=== PATIENT | female | born 1980 | race Caucasian/White ===

== ENCOUNTER 2024-12-29 11:16 | Inpatient (IN) | payer BC, SELFPAY ==
[2024-12-29] VITALS (32 sets, daily range): BP systolic 92–121; BP diastolic 60–76; PULSE 51–61; RESP 10–19; TEMP 36.3–36.7; O2SAT 97–100; BMI 32.1
--- OUTSIDE RECORDS SUMMARY | 2024-12-29 11:29 | XMS_ITS | Clinical Summary ---
Author Organization [facility] Address [facility] [place] [address] Care Team Providers Care Cheese Pancake Roller Name Role Phone Natty Mayes MD Primary Care Provider [phone] Reji Matos MD Unavailable + [phone] Natty Cope RN Unavailable [phone] Unavailable Unavailab le Allergies Active Allergy Reactions Criticality Noted Date Comments Nsaids (Non-Steroidal Anti-Inflammatory Drug) Other - Describe In Comment Field 05/12/2018 This patient has a history of a Rosita-en-Y gastric bypass. AVOID NSAIDs and aspirin due to risk of gastric and/or G-J anastomotic ulcers. If Ondina must be on short course of NSAIDs or aspirin, use enteric coated if possible and use PPI // Natty Cope RN, Bariatric Nurse Clinician, [facility] Weight Management 05/12/2018. Medications norethindrone, Contraceptive, (MICRONOR, 28,) 0.35 mg tablet Take 0.35 mg by mouth once daily. 08/10/2021 Active Active Problems Patient Care Coordination No te Formatting of this note migh t be different from the original. Weight Management - Adult Surgical Program -- [facility] Initial Consult 09/17/2017 with Reji Matos MD Intake:297 (5'6; 47.99) Operation: Laparoscopic Rosita-en Y gastric bypass 04/07/2018 Problem Noted Date Diagnosed Date Multigravida of advanced maternal age 0812/07/2020 Overview (07/03/2021): Materniti-21 at 10 weeks normal. Level 2 us 02/27 normal, aua=19+6. Had J and J COVID vaccine. Hesitant on booster due to getting vaccine just prior to her previous stillbirth. Heterozygous factor V Leiden mutation 10/20/2020 Overview (07/03/2021): After consulting with her gastric bypass team, we have elected to initiate baby asa. Status post gastric bypass for obesity Overview (07/03/2021): Information given on different supplements to take during . Additional labs are drawn. All labs normal, patient will continue with her current supplements. Patient has tolerated 1 hour glucose in the past and wants to do that for gestational diabetes screen. Supervision of wit h other poor reproductive or obstetric history, unspecified trimester 10/20/2020 Overview (07/03/2021): Delivered at 41 weeks. Would induce between 37-39 this . Since growth was normal and improved 06/07/21, will begin testing at 36 weeks. Growth us q 4 weeks. Formal ultrasound today growth at 12%ile overall. Normal fluid. Patient with significant anxiety and perceiving decreased activity. Reassuring testing today, but growth has slowed. Discussed with MFM at [facility]; passed 37 weeks with significant maternal anxiety and current clinical setting, delivery is reasonable. demise, greater than 22 weeks, antepartum 08/15/2020 Bariatric surgery status com plicating , second trimester 03/14/2020 Primigravida of advanced maternal age in second trimester 03/14/2020 Laparoscopic rosita-en-y gstri c bypass 04/07/2018 Dr. Matos 04/07/2018 Overview (04/07/2018): Dr. Matos Family planning 05/07/2012 Resolved Problems Problem Noted Date Diagnosed Date Resolved Date Encounter for supervision of normal first in first trimester 01/06/2020 08/14/2020 BMI 40.0-44.9, adult 04/16/2018 021 Other acne 05/07/2012 08/14/2020 Immunizations Immunization Administration Dates Next Due COVID-19 vaccine (Fix8-J&J) PF, MDV 1 COVID-19 vaccine (Palringo-Bio NTech 30mcg/0.3mL) 12YO+ JOEY-SUCROSE PF, MDV 09/06/2021 DTaP 11/20/2005 Hepatitis B (Adult) 12/12/2004, 5,11/14/2004,11/14 Hepatitis B, Unspecified 06/24/2001,01/17/2001,0 11/28/2000 Influenza Virus, Unspecified 05/07/2012 Influenza, IIV3 (Age >=3 years) 05/07/2012 Influenza, IIV4 01/19/2020, 9,03/03/2018,01/09 Influenza, IIV4 (=>6mos) MDV 01/16/2020 Meningococcal Vaccine (Menomune) 11/28/2000 Tdap 04/26/2021, 1,08/08/2017,11/20 Family History Medical History Relation Name Comments No Known Problems Brother No Known Problems Daughter Hyperlipidemia Father Hypertension Father Obesity Father Heart Disease Maternal Grandfather Lymphoma Maternal Grandmother lymphom a Good Health Mother smoker Heart Disease Paternal Grandfather Obesity Paternal Grandfather Obesity Paternal Grandmother Depression Sister 1 Obesity Sister 1 Depression Sister 2 Obesity Sister 2 Other Son stillborn Anesthesia Problem No Family History Clotting disorder No Family History Relation Name Status Comments Brother Alive Daughter Alive Father Alive Maternal Grandfather (Age 70) Maternal Grandmother (Age 65) Mother Alive Paternal Grandfather Paternal Grandmother (Age 90) Sister 1 Alive x2 Sister 2 Alive Son Social History Tobacco Use Types Packs/Day Years Used Date Smoking Tobacco: Never Smokeless Tobacco: Never Tobacco Cessation:Counseling Given: Yes Alcohol Use Standard Drinks/Week Comments Not Currently 0 (1 standard drink = 0.6 oz pur e alcohol) none currently Humiliation, Afraid, Rape, and Kick questionnair e Answer Date Recorded Within the last year, have y ou been afraid of your partner or ex-partner? No 01/06/2020 Within the last year, have y ou been humiliated or emotionally abused in other ways by your partner or ex-partner? No Within the last year, have y ou been kicked, hit, slapped, or otherwise physically hurt by your partner or ex-partner? No 01/06/2020 Within the last year, have y ou been raped or forced to have any kind of sexual activity by your partner or ex-partner? No 01/06/2020 PHQ-2 Answer Date Recorded PHQ-2 TOTAL SCORE 0 09/06/2021 [facility] Occupational Stress Questionnaire Answer Date Recorded Do you feel stress - tense, restless, nervous, or anxious, or unable to sleep at night because your mind is troubled all the time - these days? Not at all 01/06/2020 Exercise Vital Sign Answer Date Recorde d On average, how many days pe r week do you engage in moderate to strenuous exercise (like a brisk walk)? 4 days 01/06/2020 On average, how many minutes do you engage in exercise at this level? 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 Gender Identity Not on file Sexual Orientation Not on file Occupation Industry Job Start Date Job End Date [employer] Not on file Not on file Not on f ile Obstetrics History Para Term AB IAB SAB Ectopic Multiple Livin g Live Births 2 2 2 0 0 0 0 0 0 1 1 Date Outcome GA Total Labor Labor/2nd/3rd Weight Sex Type Anes PTL Adina A1 A5 Name Clin 2020 Term 41w 0d 7h 10m 6h 30m/0h 35m/0h 05m 3.57 kg (7 lb 14 oz) M VAGINA L RITIKA Epidur al N Demis e 0 0 VENTURA ER,BB ONDINA kelly, Natty Gonzales MD Complications:Shoulder Dysto demla, demise affecting delivery (HC) Delivery Location:Hospital ( [facility]) 2021 Term 37w 3d 0h 12m 0h 12m 2.66 kg (5 lb 14 oz) F C-Sect ion Genera l,Epid ural Livin g 7 9 VENTURA VALIENTE,BG ONDINA Armijo , Easton perdue MD Complications:Cord prolapse, Prolapse of umbilical cord, single or unspecified fetus (HC) Delivery Location:Hospital ( [facility]) Last Filed Vital Signs Vital Sign Reading Time Taken Comments Blood Pressure 115/68 09/21/2021 10:15 AM CDT Pulse 58 09/21/2021 10:15 AM CDT Temperature 36.3 C (97.4 F) 09/21/2021 8:55 AM CDT Respiratory Rate 16 09/21/2021 10:15 AM CDT Oxygen Saturation 98% 09/21/2021 10:15 AM CDT Inhaled Oxygen Concentration - - Weight 91.4 kg (201 lb 8 oz) 09/21/2021 6:52 AM CDT Height 165.1 cm (5' 5) 09/21/2021 6:52 AM CDT Body Mass Index 33.53 09/21/2021 6:52 AM CDT Plan of Treatment Health Maintenance Due Date Last Done Comments HPV series for age 9-45 (1 - 3-dose SCDM series) 2009 BMI (ht and wt on same day) for age 18+ 09/06/2022 09/06/2021, 08/22/2020, 01/06/2020, Additional history exists Depression screening for age 12+ 09/06/2022 09/06/2021, 12/18/2019, 04/16/2018, Additional history exists Pap test for age 21-65 07/14/2023 , 11/16/2016, 10/08/2013 COVID-19 vaccine series ( season) 2024 09/06/2021, 07/20/2020 Influenza Vaccine (#1) 2024 , 01/16/2020, 01/20/2019, Additional history exists Tetanus booster 04/26/2031 04/26/2021, 04/22, 08/08/2017, Additional history exists RSV vaccine for adults or (1 - 1-dose 75+ series) 2057 Hepatitis B series for 19+ Completed 12/12, 12/12/2004, 11/14/2004, Additional history exists HIV for age 15-65 Completed 01/06/2020 Hepatitis C screening for age 18-79 Completed 01/06/2020 Pneumococcal series for age 6-49 Aged Out No longer eligible based on patient's age to complete this topic Procedures Procedure Name Priority Date/Time Associated Diagnosis Comments 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 ThinPrep Vial Screening, Cervical 07/20/2020 10:13 AM CDT [facility] ENTRAL LABORATORY INTERPRETATION/ RESULT NEGATIVE FOR INTRAEPITHELIAL LESION OR MALIGNANCY (NIL) (none) 07/20/2020 10:13 AM CDT [facility]AL LAB[facility] at 1013 CDT ORGANISM(S) Shift in kota suggestive of bacterial vaginosis 07/20/2020 10:13 AM CDT [facility] ENTRAL LABORATORY SPECIMEN ADEQUACY Satisfactory for evaluation Endocervical component present 07/20/2020 10:13 AM CDT [facility] EN[facility]AL LAB[facility] HPV REQUEST HPV if ASCUS 07/20/2020 10:13 AM CDT [facility] EN[facility]AL [facility] Date of LMP unk 07/20/2020 10:13 AM CDT [facility] Last Pap Date 11/16/16 07/20/2020 10:13 AM CDT [facility] Last Pap Result NIL 10:13 AM CDT [facility] EN[facility]AL LAB[facility] Abnormal Pap or [place] Bx in last 5 years No 07/20/2020 10:13 AM CDT [facility] Menstrual Status Regular Periods 07/20/2020 10:13 AM CDT [facility] [place] Bx Done Today No 07/20/2020 10:13 AM T [facility] ENTRAL LABORATORY Additional Information None given 07/20/2020 10:13 AM CDT [facility] ENTRAL LABORATORY Comment: Cytology is screened at [facility] - [address] [address] and [facility] - [address] [place] [address] and [facility] - [address] [place] [address] Interpreted at [facility], Central Laboratory - [address], [place] [address] Automated Review Successful 07/20/2020 10:13 AM T [facility] ENTRAL LABORATORY Comment:Specimen processed s uccessfully by automated platform worker device, ThinPrep Imaging System, [employer] Note The pap test is a screening technique, not a diagnostic procedure. It is used primarily to screen for squamous cancers and precursor lesions. Published studies have shown that it is subject to both false negative and false positive results. The pap test should not be used as the sole means to diagnose or exclude pre-malignant and malignant lesions. 07/20/2020 10:13 AM T [facility] ENTRAL LABORATORY Other (Cervical) Non-Blood / Unknown 07/13/2020 9:20 AM CDT 07/13/2020 10:06 AM CDT Natty Mayes MD PATHOLOGY/CYTOLOGY Final Res ult [facility] [address] [place] [address], [place] * ANTI HCV (01/06/2020 10:11 AM CDT) HEPATITIS C ANTIBODY Non-React soledad Non-React soledad 01/06/2020 5:24 PM CDT [facility] TRAL LABORATORY Comment:Antibodies to HCV no t detected; does not exclude the possibility of exposure to HCV. Blood BLOOD SPECIMEN / Unknown Venipuncture / Unknown 01/06/2020 10:11 AM CDT 01/06/2020 10:14 AM CDT Natty Mayes MD SEND OUTS Final Result Performing Organization Address City/[facility]/ZIP Co de Phone Number [facility] [address] [place] [address], [place] * ANTI HIV 1/2 (01/06/2020 10:11 AM CDT) HIV-1/HIV-2 ANTIBODY Non-Reacti ve Non-Reacti ve 01/06/2020 5:22 PM CDT [facility] TRAL LABORATORY Comment:HIV-1 p24 and HIV-1/ HIV-2 Ab not detected. Blood BLOOD SPECIMEN / Unknown Venipuncture / Unknown 01/06/2020 10:11 AM CDT 01/06/2020 10:14 AM CDT Natty Mayes MD SEND OUTS Final Result [facility] [address] [place] [address], [place] from Last 3 Months or Most Recently Relevant to Health Maintenance Insurance [facility] [employer] * Guarantor: ELIZA ELDRIDGE Account Type Relation to Patient Date of Phone Billing Address [facility] [address] [place] [address] Advance Directives * Full Code (Latest Code Status on File) Date Activated Date Inactivated Comments 09/21/2021 6:29 AM 09/21/2021 12:59 PM Question Answer Comments Code Status Discussion: Reviewed Preferences * Full Code Date Activated Date Inactivated Comments 07/03/2021 11:46 AM 07/03/2021 3:29 PM Question Answer Comments Code Status Discussion: Other * Full Code Date Activated Date Inactivated Comments 06/30/2021 9:17 AM 06/30/2021 10:32 PM Question Answer Comments Code Status Discussion: Other * Full Code Date Activated Date Inactivated Comments 08/14/2020 6:28 PM 08/16/2020 12:25 AM Question Answer Comments Code Status Discussion: Not Discussed * Full Code Date Activated Date Inactivated Comments 08/14/2020 6:28 PM 08/14/2020 6:28 PM Question Answer Comments Code Status Discussion: Not Discussed Care Teams Cheese Pancake Roller Relationship Specialty Start Date End Date Natty Mayes MD [address] [place] [address] PCP - General Family Practice 05/07/12 Reji Matos MD 100 [facility] [place] [address] Consulting Physician Surgery - General 09/17/17 Natty Cope, RN [address] [facility] [place] [address] Registered Nurse Registered Nurse 09/17/[address] [facility] [place] [address] Registered Dietitian Guest Service Supervisor 09/17/17
--- NOTE | 2024-12-29 12:11 | ED.GENADULT ---
HPI - General Adult General Date Seen: 12/29/24 Chief complaint: Extremity Pain/Injury, Upper Stated complaint: numbness in hands and feet Time Seen by Provider: 12/29/24 12:10 History of Present Illness HPI narrative: 44 yo F with a past medical history of factor 5 Leiden. Per medical record from [facility] she also has a history of previous gastric bypass (Venessa-en-Y, 2018), heterozygous factor 5 Leiden. She has no history of spine problems, back pain or neck pain. No previous spine operations. She has been healthy and well lately. She does take escitalopram for anxiety. That is been well controlled lately. She also takes methylphenidate for ADHD. That is also well controlled. She has no recent illnesses or injuries. No recent vomiting or diarrhea. No recent URI symptoms. Her and her 3-year-old daughter have been healthy and well lately as well. Beginning at about 230 this morning she noted symptoms. She awoke to go to the bathroom and when she woke up she noted a little bit of stiffness in both of her shoulders and the back of her neck and a little bit of tingling in her hands and fingers. She tried to stretch out her neck again massaged to make this stiffness go way. She was able to go back to sleep. When she woke up this morning with a cough she has noticed progressing symptoms now with numbness and tingling affecting her hands, although up to her elbows and some trouble with her comprehensive ophthalmologist strength in her hands. Through the morning she feels like her hands and arms have gotten more numb and a little bit weaker. She even has trouble picking her arms up above her head. The numbness in her arms is symmetric and bilateral. She also this morning she started developing a little bit tingling numbness affecting her right lower extremity mostly around the hip and proximal thigh as noted some weakness in that leg as well where it is trouble walking. She is not having any numbness or weakness in her left leg. No headache. No slurred speech. No facial droop. No trouble with her vision. No double vision. No trouble swallowing. No trouble breathing. No fever. No rash. No known fall or injury. No chest pain or abdominal pain. She does note that she is pretty active in she was playing softball about 3 weeks ago and got struck in the left calf by a softball. No persistent calf bruising or leg swelling. She is not anticoagulated. History of blood clots but she did have 1 previous miscarriage at about 22 weeks which is thought to be related to her heterozygous factor 5 Leiden. Related Data Home Medications ?Medication ?Instructions ?Recorded ?Confirmed dextroamphetamine-amphetamine 10 1 tab PO DAILY 12/29/24 12/29/24 mg tablet dextroamphetamine-amphetamine ER 1 cap PO DAILY 12/29/24 12/29/24 15 mg 24hr capsule,extend release escitalopram oxalate 10 mg tablet 10 mg PO DAILY 12/29/24 12/29/24 Allergies Allergy/AdvReac Type Severity Reaction Status Date / Time No Known Drug Allergies Allergy Verified 12/29/24 11:33 [facility] Medical History (Updated 12/29/24 @ 22:10 by Melissa Phelps MD) History of stillbirth ?Z87.59 - Personal history of other complications of , childbirth and the puerperium (ICD-10) ADHD ?F90.9 - Attention-deficit hyperactivity disorder, unspecified type (ICD-10) Heterozygous factor V Leiden mutation ?D68.51 - Activated protein C resistance (ICD-10) Microcytic anemia ?D50.9 - Iron deficiency anemia, unspecified (ICD-10) Surgical History (Updated 12/29/24 @ 21:06 by Melissa Phelps MD) H/O bilateral salpingectomy ?Z90.79 - Acquired absence of other genital organ(s) (ICD-10) History of Venessa-en-Y gastric bypass ?Z98.84 - Bariatric surgery status (ICD-10) S/P tonsillectomy ?Z90.89 - Acquired absence of other organs (ICD-10) Hx of cholecystectomy ?Z90.49 - Acquired absence of other specified parts of digestive tract (ICD-10) Delivery by section S/P right knee arthroscopy ?Z98.890 - Other specified postprocedural states (ICD-10) Social History (Updated 12/29/24 @ 22:04 by Melissa Phelps MD) Narrative: Lives with Christopher and 3 yo daughter in [place]. Works at the [employer]. Nonsmoker, rare ETOH. Full Code. Exam Narrative: Exam Narrative: Primary Survey: A- patent. Speaking clearly. Phonation normal. No stridor. B- breathing easily. Lung sounds clear and equal. Oxygen saturation normal on room air C- no active bleeding. Blood pressure stable. Symmetric pulses and cap refill in 4 extremities. D- alert and oriented x3. GCS 15. Constitutional: Appears well-developed and well-nourished. Alert. Conversant. Non toxic. HENT: Head: Atraumatic. Nose: Nose normal. Mouth/Throat: Oral mucosa is clear and moist. no trismus. Pharynx normal. Tonsils symmetric. No tonsillar enlargement, erythema, or exudate. Eyes: Conjunctivae normal. EOM normal. Pupils equal, round, and reactive to light. No scleral icterus. Neck: Normal range of motion. Neck supple. No tracheal deviation present. Cardiovascular: Normal rate, regular rhythm. No gallop. No friction rub. No murmur heard. Symmetric radial and PT artery pulses . She says her hands and feet feel cold but she does have brisk cap refill. No cyanosis or pallor. Pulmonary/Chest: Effort normal. No stridor. No respiratory distress. No wheezes. No rales. No rhonchi . No tenderness. Abdominal: Soft. No distension. No mass. No tenderness. No rebound. No guarding. Musculoskeletal: No C, T, L-spine step-off or point tenderness. No bruising. RUE: Normal range of motion. No tenderness. No deformity LUE: Normal range of motion. No tenderness. No deformity RLE: Normal range of motion. No edema. No tenderness. No deformity LLE: Normal range of motion. No edema. No tenderness. No deformity Mental status normal. Attention normal. Alert and oriented x3. GCS 15. Memory normal. Speech fluent. Cognition normal. Cranial Nerves intact II-XII except I did not formally test gag or visual acuity. EOMI. Palate elevates symmetrically and tongue protrudes in the midline. Strength: Strength is 5/5 bilaterally in the trapezius 4+/5 bilaterally in the deltoid. She is able to lift her arms up against gravity but not all the way up above her head. 5/5 strength in her biceps but 4+ in her triceps bilaterally. She has very little comprehensive ophthalmologist strength and is barely able to squeeze my fingers bilaterally. She has trouble doing pronation and supination of her forearms bilaterally. Strength in her lower extremities is 5/5 bilaterally in the so S, hamstring, gastrocnemius, tibialis anterior, extensor hallucis longus, and toe flexors. However when she walks she is shows a little bit of weakness in her right leg but not a footdrop. She has subjective tingling paresthesias involving her light right lower extremity including the proximal thigh medial thigh, and a little bit on the foot. DTs are symmetric and 2+/4 bilaterally in the biceps, brachioradialis, patella, and Achilles reflexes. Really generally pretty brisk reflexes. Easy to elicit her Achilles tendon reflexes. I am not able to get triceps reflexes on either side but I think that is partly because the patient is just not able to completely relax her arm during triceps reflex testing. Gait is slow and she does have some trouble using her right leg to walk. She seems to tilt her pelvis toward the right leg when she steps down on it and does have a limp but does not fall. She is able to hold each leg against gravity for 5 seconds. She is able to lift each arm against gravity and hold him up for 5 seconds but I noticed that she is not able to fully extend her elbows and is not able to supinate her hands. She has bilateral comprehensive ophthalmologist weakness, bilateral weakness with her wrist flexors and extensors. Skin: Skin is warm and dry. No rash noted. No pallor. Normal capillary refill. Psychiatric: Normal mood. Normal affect allowing for some alarm because of her neurologic symptoms. Does not seem overly anxious or panicky. attentively at her bedside.. Const: Vital Signs, click to edit/add: Vital Signs - 24 hr 12/29/24 11:33 12/29/24 13:35 12/29/24 13:45 Temperature 97.3 F L Pulse Rate Pulse Rate [Pulse Oximeter] 60 Respiratory Rate 16 14 10 L Blood Pressure Blood Pressure [Le ft Upper Arm] 119/76 Pulse Oximetry 99 Oxygen Delivery Me thod Room Air 12/29/24 14:02 12/29/24 14:15 12/29/24 14:30 Temperature Pulse Rate Pulse Rate [Pulse Oximeter] Respiratory Rate 15 11 L 16 Blood Pressure 116/72 Blood Pressure [Le ft Upper Arm] Pulse Oximetry Oxygen Delivery Ks thod 12/29/24 14:31 12/29/24 14:45 12/29/24 15:00 Temperature Pulse Rate Pulse Rate [Pulse Oximeter] Respiratory Rate 14 14 14 Blood Pressure 112/66 Blood Pressure [Le ft Upper Arm] Pulse Oximetry Oxygen Delivery Me thod 12/29/24 15:02 12/29/24 15:30 12/29/24 15:31 Temperature Pulse Rate Pulse Rate [Pulse Oximeter] Respiratory Rate 11 L 11 L 16 Blood Pressure 92/69 114/73 Blood Pressure [Le ft Upper Arm] Pulse Oximetry Oxygen Delivery Ks thod 12/29/24 15:45 12/29/24 16:00 12/29/24 16:02 Temperature Pulse Rate Pulse Rate [Pulse Oximeter] Respiratory Rate 19 18 13 Blood Pressure 109/65 Blood Pressure [Le ft Upper Arm] Pulse Oximetry Oxygen Delivery Me thod 12/29/24 16:06 12/29/24 16:15 12/29/24 18:20 Temperature Pulse Rate 61 Pulse Rate [Pulse Oximeter] 55 L Respiratory Rate 18 17 Blood Pressure Blood Pressure [Le ft Upper Arm] 109/65 Pulse Oximetry 97 98 Oxygen Delivery Ks thod 12/29/24 18:31 12/29/24 18:32 12/29/24 18:45 Temperature Pulse Rate 55 L 55 L 56 L Pulse Rate [Pulse Oximeter] Respiratory Rate Blood Pressure 109/61 Blood Pressure [Le ft Upper Arm] Pulse Oximetry 100 99 99 Oxygen Delivery Me thod 12/29/24 18:53 12/29/24 18:56 12/29/24 19:03 Temperature Pulse Rate 55 L 58 L Pulse Rate [Pulse Oximeter] 55 L Respiratory Rate Blood Pressure 110/65 110/76 Blood Pressure [Le ft Upper Arm] 110/65 Pulse Oximetry 99 99 99 [facility] Air 12/29/24 19:04 12/29/24 19:15 12/29/24 19:31 Temperature Pulse Rate 55 L 51 L Pulse Rate [Pulse Oximeter] Respiratory Rate Blood Pressure 115/70 Blood Pressure [Le ft Upper Arm] Pulse Oximetry 99 98 Oxygen Delivery Ks thod 12/29/24 20:01 12/29/24 20:31 Temperature Pulse Rate Pulse Rate [Pulse Oximeter] Respiratory Rate Blood Pressure 113/73 121/69 Blood Pressure [Le ft Upper Arm] Pulse Oximetry Oxygen Delivery Me thod Course Course ED Course: Patient seen and examined in ER bed 6. Initial differential includes stroke (but I think that is unlikely given the bilateral nature of her upper extremity symptoms), cervical spine her disc herniation, other spine pathologies such as syringomyelia, demyelinating lesions, less likely would be epidural hematoma or abscess in the absence of any symptoms for those. She is not anticoagulated. Differential would also include Guillain-Littleton, myasthenia. Although anxiety can often cause bilateral hand numbness, typically does not cause this degree of weakness and my overall impression, this patient is that she has not seemingly anxious. We felt the neuro imaging was indicated. I did order brain and C-spine MRIs with and without contrast initially. I contacted our radiology department to see how quickly began get these done. While this was occurring we also placed a consult to Neurology from [facility]. Discussed with the stroke neurologist, Dr. Escamilla. She strongly feels this is not going to be a stroke causing her symptoms but does recommend MR imaging also to include her T-spine with and without contrast. I added these images on to the orders. Dr. Boyle also page out a different neurologist to talk about this patient's weakness. Reevaluation(s) Reevaluation #1: Discussed case with Stroke Neurology, this time Dr. Donahue. She is suspicious that this probably MS, as GA with the demyelinating lesions in the lower cervical cord. She recommends admission for high-dose IV corticosteroids (Solu-Medrol 1 g IV q.day. She also recommends admission with lab workup for connective tissue disease, lumbar puncture for further testing to confirm her diagnosis MS. Discussed with the patient and her . They are very surprised. They verbalized their understanding for our plan of care for admission, treatment, and further workup. Discussed with our hospitalist, Dr. Phelps. Vital Signs Vital signs: Initial Vital Signs Temperature 97.3 F L 12/29/24 11:33 Temperature Source Temporal Artery Scan 12/29/24 11:33 Pulse Rate 60 12/29/24 11:33 Respiratory Rate 16 12/29/24 11:33 Blood Pressure 119/76 12/29/24 11:33 Blood Pressure Mean 90 12/29/24 11:33 Blood Pressure Position Sitting 12/29/24 11:33 Pulse Oximetry 99 12/29/24 11:33 Oxygen Delivery Method Room Air 12/29/24 11:33 Vital Signs Temperature 97.3 F L 12/29/24 11:33 Pulse Rate 60 12/29/24 11:33 Respiratory Rate 16 12/29/24 11:33 Blood Pressure 119/76 12/29/24 11:33 Pulse Oximetry 99 12/29/24 11:33 Oxygen Delivery Method Room Air 12/29/24 11:33 Temperature 97.3 F L 12/29/24 11:33 Pulse Rate 51 L 12/29/24 19:15 Respiratory Rate 17 12/29/24 16:15 Blood Pressure 121/69 12/29/24 20:31 Pulse Oximetry 98 12/29/24 19:15 Oxygen Delivery Method Room Air 12/29/24 18:56 Medications Administered Medications: Discontinued Medications Generic Name Dose Route Start Last Admin Trade Name Freq PRN Reason Stop Dose Admin Methylprednisolone Sodium 266 mls @ 266 mls/hr 12/29/24 20:30 12/29/24 22:07 Succinate 1,000 mg/ Sodium IVPB 12/29/24 21:29 Infused Chloride ONCE ONE Infusion Medical Decision Making [facility] Narrative Medical decision making narrative: 44-year-old female presenting to the ER today with the acute onset of neurologic symptoms that began overnight last night and worsened this morning. She has bilateral and symmetric upper extremity weakness of comprehensive ophthalmologist send forearms with tingling paresthesias all the way up to her shoulders. Also right lower extremity tingling paresthesias and weakness mostly of the proximal muscles in the right. No trauma. No fall. Differential is broad. Consider Guillain-Littleton but no clear recent viral syndrome or diarrhea. She has normal reflexes. She is not hyperreflexic. Consider also possible demyelinating syndrome, cervical spine disc herniation, syringomyelia, central cord syndrome, myasthenia, among others. Laboratory workup does not show any definite cause for her focal neurologic deficits. I do note that she is anemic with a hemoglobin of 9.5. We do not have any recent baselines in the [facility] system but she did have a baseline a cup the the years ago that showed mild anemia with hemoglobin of 8.9 on 07/01/2021 and then 11.9 on 09/06/2021. Coags and INR are normal. She is not . White count Normal. In CRP level is low. Urinalysis is normal. COVID/influenza/RSV PCR is negative. In consultation with Neurology from [facility] we have ordered MRIs of her brain, C-spine, T-spine, with and without contrast. MRIs were delayed by several hours today because the MRI scanner was already occupied. Images show normal brain and T-spine but they do show areas of demyelination in the cervical cord suspicious for multiple sclerosis. No other mass lesions, herniating disc, or external compression of the cord. Lab Data Labs: Lab Results 12/29/24 12/29/24 Range/Units 12:30 12:42 WBC 6.98 (4.50-11.00) K/uL RBC 4.47 (4.00-5.20) m/uL Hgb 9.5 L (12.0-16.0) gm/dL Hct 32.2 L (33.0-51.0) % MCV 72 L (80-100) fL MCH 21 L (26-34) pg MCHC 30 L (32-36) gm/dL RDW Coeff of Sandra 17.0 H (11.5-15.5) % Plt Count 336 (140-440) K/uL Neut % (Auto) 67.3 (42.0-72.0) % Lymph % (Auto) 23.5 (20-44) % Weston % (Auto) 8.9 (0.0-11.0) % Eos % (Auto) 0.1 (0.0-7.0) % Baso % (Auto) 0.1 (0.0-3.0) % Neut # (Auto) 4.69 (1.7-7.0) K/uL Lymph # (Auto) 1.64 (0.90-2.90) K/uL Weston # (Auto) 0.60 (0.00-0.90) K/UL Eos # (Auto) 0.01 (0.00-0.50) K/uL Baso # (Auto) 0.01 (0.00-0.30) K/uL Abs Immat Gran (auto) 0.01 (0.00-0.30) K/uL Imm/Tot Granulo (auto) 0.1 % Diff Slide Review Acceptable Review (Acceptable) INR 0.96 (0.91-1.10) Sodium 139 (135-149) mmol/L Potassium 4.1 (3.6-5.1) mmol/L Chloride 106 (96-114) mmol/L Carbon Dioxide 28 (20-32) mmol/L Anion Gap 5 L (7-15) mEq/L BUN 9 (5-24) mg/dL Creatinine 0.6 (0.5-1.5) mg/dL Estimated Creat Clear 109.91 Estimated GFR 115 ml/min Glucose 106 (60-115) mg/dL Lactate 0.9 (0.5-1.9) mmol/L Calcium 8.7 (8.4-10.6) mg/dL C-Reactive Protein < 0.5 L (0.5-1.0) mg/dL Urine Color Yellow (Yellow) Urine Appearance Slightly Cloudy A (Clear) Urine pH 6.5 (5.0-8.5) Ur Specific [place] 1.020 (1.000-1.030) Urine Protein Negative (Negative) Urine Glucose (UA) Negative (Negative) Urine Ketones Trace A (Negative) Urine Blood Negative (Negative) Urine Nitrite Negative (Negative) Urine Bilirubin Negative (Negative) Urine Urobilinogen 2.0 A (0.2-1.0) Ur Leukocyte Esterase Negative (Negative) Urine RBC 0-2 (0-2) Urine WBC 0-2 (0-5) Ur Squamous Epith Cells Moderate A (None-Few) Urine Bacteria None (None) Urine HCG, Qual Negative (Negative) SARS-CoV-2 (PCR) Negative SARS-CoV-2 (Negative) Influenza Type A (PCR) Negative PCR FLU A (Negative) Influenza Type B (PCR) Negative PCR FLU B (Negative) RSV (PCR) Negative PCR RSV (Negative) Imaging Data MRI brain with and without contrast: Attestation: I have reviewed the pertinent imaging results. Radiologist's impression: Impression: No acute intracranial abnormality. MRI thoracic spine with and without contrast: Attestation: I have reviewed the pertinent imaging results. Radiologist's impression: Impression: 1. Mild spondylosis, without spinal canal or neural foraminal narrowing. 2. No abnormal cord signal. MRI cervical spine with and without contrast: Attestation: I have reviewed the pertinent imaging results. Radiologist's impression: Impression: 1. Scattered foci of cord signal abnormality involving the mid to lower cervical cord. Findings are concerning for demyelination. 2. No abnormal enhancement to suggest active process. 3. Minimal spondylosis. ECG Data Interpretation: Sinus bradycardia Rate 54 RI interval 136 Normal QRS axis. No ST segment elevation or depression. QTC 452, QTC 428 Discharge Plan Discharge Clinical Impression: Multiple sclerosis Patient Disposition: Admitted As Inpatient
--- NOTE | 2024-12-29 12:30 | MR_ITS ---
Patient: ONDINA ENGLISH Facility:?[facility] R[facility] Patient ID:?[id number] Site Patient ID:?[id number]. Site :?1980 Study:?MRI-Head W/ and W/O Cont 20 CC DOATERM-12/29/2024 6:30:52 PM Ordering Physician:Christiano Stephens Final Report: Indication: Weakness/numbness. Technique: Multiplanar, multisequence MRI of the brain was performed without and with intravenous contrast. Contrast: 20 cc Dotarem. Comparison: None relevant available at this institution. Findings: The corpus callosum, pituitary gland and clivus appear intact. Craniocervical junction appears preserved. There is no restricted diffusion. No intracranial hemorrhage. The ventricles are proportionate to the cerebral sulci. The 4th ventricle appears midline. The basal cisterns appear patent. No abnormal extra-axial fluid collection identified. There is no intracranial mass, abnormal mass-effect or midline shift identified. No abnormal enhancement. Major intracranial vascular flow voids appear grossly intact. Both globes are preserved. Impression: No acute intracranial abnormality. Dictated by Larry Solares MD @ 12/29/2024 6:45:54 PM (Electronic Signature)
--- NOTE | 2024-12-29 12:30 | MR_ITS ---
Patient: ONDINA ENGLISH Facility:?[facility] R[facility] Patient ID:?[id number] Site Patient ID:?[id number]. Site :?1980 Study:?MRI-Spine Cervical W/WO 20 CC DOTAREM-12/29/2024 6:31:18 PM Ordering Physician:?Joe Stephens Final Report: Indication: Weakness/numbness. Technique: MRI of the cervical spine was performed without and with the use of intravenous contrast. Contrast: 20 cc Dotarem. Comparison: MRI brain same day. Findings: The vertebral body heights appear maintained without evidence of fracture. No discrete T1 hypointense marrow infiltrating process. Mild disc degeneration without significant height loss. Several foci of abnormal cord signal noted at the C4, C5 and C6-7 levels. No abnormal enhancement. C2-3: No spinal canal or neural foraminal narrowing. C3-4: Minimal disc bulge without spinal canal or neural foraminal narrowing. C4-5: Disc degeneration. No spinal canal narrowing. Mild neural foraminal narrowing. C5-6: Disc degeneration. No spinal canal or neural foraminal narrowing. C6-7: Disc degeneration. Shallow disc bulge. No spinal canal or neural foraminal narrowing. C7-T1: No spinal canal or neural foraminal narrowing. Impression: 1. Scattered foci of cord signal abnormality involving the mid to lower cervical cord. Findings are concerning for demyelination. 2. No abnormal enhancement to suggest active process. 3. Minimal spondylosis. Dictated by Larry Solares MD @ 12/29/2024 7:11:38 PM (Electronic Signature)
--- NOTE | 2024-12-29 12:43 | MR_ITS ---
Patient: ONDINA ENGLISH Facility:?[facility] R[facility] Patient ID:?[id number] Site Patient ID:?[id number]. Site :?1980 Study:?MRI-Spine Thoracic W/WO 20 CC DOTAREM-12/29/2024 6:31:43 PM Ordering Physician:Christiano Stephens Final Report: Indication: Weakness/numbness. Technique: Multiplanar, multisequence MRI of the thoracic spine was performed without and with the use of 20 cc Dotarem intravenous contrast. Comparison: MRI cervical spine the same day. Findings: The vertebral body heights are maintained without evidence of fracture. No marrow infiltrative process. Mild multilevel disc height loss and degeneration. Slightly exaggerated thoracic kyphosis. No abnormal cord signal. No abnormal enhancement. Mild spondylosis, without overt evidence of spinal canal or neural foraminal compromise throughout the thoracic spine. Impression: 1. Mild spondylosis, without spinal canal or neural foraminal narrowing. 2. No abnormal cord signal. Dictated by Larry Solares MD @ 12/29/2024 7:14:53 PM (Electronic Signature)
[2024-12-29 12:48] LABS: Lactate* 0.9 mmol/L (0.5-1.9)
[2024-12-29 12:53] LABS: Hematocrit* 32.2 % (33.0-51.0); Hemoglobin* 9.5 gm/dL (12.0-16.0); Immature Granulocytes Abs Auto 0.01 K/uL (0.00-0.30); Immature Granulocytes Pct Auto 0.1 %; Lymphocytes Absolute Auto 1.64 K/uL (0.90-2.90); Mean Corpuscular HGB Conc 30 gm/dL (32-36); Mean Corpuscular Hemoglobin 21 pg (26-34); Mean Corpuscular Volume 72 fL (80-100); RDW Coefficient of Variation % 17.0 % (11.5-15.5); Red Blood Count* 4.47 m/uL (4.00-5.20); White Blood Count* 6.98 K/uL (4.50-11.00)
[2024-12-29 12:56] LABS: Slide Review Reflex Yes
[2024-12-29 13:07] LABS: Chloride* 106 mmol/L (96-114); Potassium* 4.1 mmol/L (3.6-5.1); Sodium* 139 mmol/L (135-149)
[2024-12-29 13:07] LABS: Ur HCG Qualitative* Negative (Negative)
[2024-12-29 13:09] LABS: INR 0.96 (0.91-1.10); Prothrombin Time 13.6 Seconds
[2024-12-29 13:10] LABS: Blood Urea Nitrogen* 9 mg/dL (5-24); Creatinine* 0.6 mg/dL (0.5-1.5); Est. Creatinine Clearance* 109.91; Estimated Glomerular Filt Rate 115 ml/min
[2024-12-29 13:11] LABS: Anion Gap 5 mEq/L (7-15); Calcium* 8.7 mg/dL (8.4-10.6); Carbon Dioxide* 28 mmol/L (20-32); Glucose* 106 mg/dL (60-115)
[2024-12-29 13:13] LABS: Appearance Urine Slightly Cloudy (Clear)
[2024-12-29 13:27] LABS: PCR FLU A Negative PCR FLU A (Negative); PCR FLU B Negative PCR FLU B (Negative); PCR RSV Negative PCR RSV (Negative); SARS PCR* Negative SARS-CoV-2 (Negative)
[2024-12-29 13:30] LABS: Slide Review Acceptable Review (Acceptable)
[2024-12-29] MEDS: METHYLPREDNISOLONE SOD SUCC IVPB (20:39)
[2024-12-29] MEDS: SODIUM CHLORIDE 0.9% IVPB (20:39)
--- NOTE | 2024-12-29 20:55 | PM.IMHP1 ---
Assessment and Plan Assessment and plan (1) Multiple sclerosis: Problem comment: - new diagnosis 12/29/24 - Dr. 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 Symptoms first noted around 0200 when she got up to use the bathroom; also noted some numbness and tingling in her RLE, but able to ambulate. Her upper extremity symptoms progressed to the point where she couldn't hold lift her arms above her head, hold her daughter, or perform ADLs, so presented to ER with her . ER Course and Findings: - microcytic anemia (Hgb 9.5, MCV 72), history of this - reassuring electrolytes/renal function - MRI of Brain and T-Spine reassuring, C-spine MRI with findings concerning for demyelination - Dr. Donahue of TeleNeurology consulted on patient, A/P from her note below Recommendations: Would initiate high dose Solumedrol treatment (1gm daily for 5 days) LP - sending routine studies, IgG synthesis rate, OCB Send serologies screening for autoimmune disease Formal consult from our service tomorrow Histories updated below. Recently transitioned PCP from [facility] to [facility] in [place]. [facility] Medical History (Updated 12/29/24 @ 22:10 by Melissa Phelps MD) History of stillbirth ?Z87.59 - Personal history of other complications of , childbirth and the puerperium (ICD-10) ADHD ?F90.9 - Attention-deficit hyperactivity disorder, unspecified type (ICD-10) Heterozygous factor V Leiden mutation ?D68.51 - Activated protein C resistance (ICD-10) Microcytic anemia ?D50.9 - Iron deficiency anemia, unspecified (ICD-10) Surgical History (Updated 12/29/24 @ 21:06 by Melissa Phelps MD) H/O bilateral salpingectomy ?Z90.79 - Acquired absence of other genital organ(s) (ICD-10) History of Venessa-en-Y gastric bypass ?Z98.84 - Bariatric surgery status (ICD-10) S/P tonsillectomy ?Z90.89 - Acquired absence of other organs (ICD-10) Hx of cholecystectomy ?Z90.49 - Acquired absence of other specified parts of digestive tract (ICD-10) Delivery by section S/P right knee arthroscopy ?Z98.890 - Other specified postprocedural states (ICD-10) Social History (Updated 12/29/24 @ 22:04 by Melissa Phelps MD) Narrative: Lives with Christopher and 3 yo daughter in [place]. Works at the [employer]. Nonsmoker, rare ETOH. Full Code. Meds Home Medications and Allergies Home Medications ?Medication ?Instructions ?Recorded ?Confirmed ?Type dextroamphetamine-amphetamine 10 1 tab PO DAILY 12/29/24 12/29/24 History mg tablet dextroamphetamine-amphetamine ER 1 cap PO DAILY 12/29/24 12/29/24 History 15 mg 24hr capsule,extend release escitalopram oxalate 10 mg tablet 10 mg PO DAILY 12/29/24 12/29/24 History Allergies Allergy/AdvReac Type Severity Reaction Status Date / Time No Known Drug Allergies Allergy Verified 12/29/24 11:33 Exam Narrative: Exam Narrative: GEN: Alert and oriented, nontoxic. Speaking comfortably in full sentences HEENT: Normal external ears, EOMIs bilaterally, no scleral icterus CV: RRR, No concerning murmurs, rubs, or gallops R: LCTA bilaterally without concerning wheezing, air movement adequate Ext: wwp, no concerning edema Skin: No concerning skin lesions or rashes on exposed skin Neuro: No facial asymmetry. No tremor. Able to shrug shoulders. Cellular Tower Climber strength 3-4/5 on R, 3/5 on L. Able to flex and extend at the elbows, very minimal strength against resistance. Limited forward flexion at bilateral shoulders. Able to lift legs off of bed against resistance. + Babinski R. Brisk DTRs bilateral patellae Psych: Appropriate Const: Vital Signs, click to edit/add: Vital Signs - 24 hr 12/29/24 11:33 12/29/24 13:35 12/29/24 13:45 Temperature 97.3 F L Pulse Rate Pulse Rate [Pulse Oximeter] 60 Respiratory Rate 16 14 10 L Blood Pressure Blood Pressure [Le ft Upper Arm] 119/76 Pulse Oximetry [facility] 12/29/24 14:02 12/29/24 14:15 12/29/24 14:30 Temperature Pulse Rate Pulse Rate [Pulse Oximeter] Respiratory Rate 15 11 L 16 Blood Pressure 116/72 Blood Pressure [Le ft Upper Arm] Pulse Oximetry [facility] 12/[facility]/24 14:31 12/29/24 14:45 12/29/24 15:00 Temperature Pulse Rate Pulse Rate [Pulse Oximeter] Respiratory Rate 14 14 14 Blood Pressure 112/66 Blood Pressure [Le ft Upper Arm] Pulse Oximetry [facility] 12/29/24 15:02 12/29/24 15:30 12/29/24 15:31 Temperature Pulse Rate Pulse Rate [Pulse Oximeter] Respiratory Rate 11 L 11 L 16 Blood Pressure 92/69 114/73 Blood Pressure [Le ft Upper Arm] Pulse Oximetry [facility] 12/[facility]/24 15:45 12/29/24 16:00 12/29/24 16:02 Temperature Pulse Rate Pulse Rate [Pulse Oximeter] Respiratory Rate 19 18 13 Blood Pressure 109/65 Blood Pressure [Le ft Upper Arm] Pulse Oximetry [facility] 12/29/24 16:06 12/29/24 16:15 12/29/24 18:20 Temperature Pulse Rate 61 Pulse Rate [Pulse Oximeter] 55 L Respiratory Rate 18 17 Blood Pressure Blood Pressure [Le ft Upper Arm] 109/65 Pulse Oximetry 97 98 [facility] 12/29/24 18:31 12/29/24 18:32 12/29/24 18:45 Temperature Pulse Rate 55 L 55 L 56 L Pulse Rate [Pulse Oximeter] Respiratory Rate Blood Pressure 109/61 Blood Pressure [Le ft Upper Arm] Pulse Oximetry 100 99 99 Oxygen Delivery [facility] 12/29/24 18:53 12/29/24 18:56 12/29/24 19:03 Temperature Pulse Rate 55 L 58 L Pulse Rate [Pulse Oximeter] 55 L Respiratory Rate Blood Pressure 110/65 110/76 Blood Pressure [Le ft Upper Arm] 110/65 Pulse Oximetry 99 99 99 [facility] 12/29/24 19:04 12/29/24 19:15 12/29/24 19:31 Temperature Pulse Rate 55 L 51 L Pulse Rate [Pulse Oximeter] Respiratory Rate Blood Pressure 115/70 Blood Pressure [Le ft Upper Arm] Pulse Oximetry 99 98 [facility] 12/29/24 20:01 12/29/24 20:31 Temperature Pulse Rate Pulse Rate [Pulse Oximeter] Respiratory Rate Blood Pressure 113/73 121/69 Blood Pressure [Le ft Upper Arm] Pulse Oximetry Oxygen Delivery [facility] Hospitalist - H&P: Result Labs Labs: Short CBC 12/29/24 Range/Units 12:42 WBC 6.98 (4.50-11.00) K/uL Hgb 9.5 L (12.0-16.0) gm/dL Hct 32.2 L (33.0-51.0) % Plt Count 336 (140-440) K/uL BMP 12/29/24 12:42 Sodium 139 Potassium 4.1 Chloride 106 Carbon Dioxide 28 BUN 9 Creatinine 0.6 Glucose 106 Calcium 8.7 Urine 12/29/24 Range/Units 12:30 Urine Color Yellow (Yellow) Urine Appearance Slightly Cloudy A (Clear) Urine pH 6.5 (5.0-8.5) Ur Specific [place] 1.020 (1.000-1.030) Urine Protein Negative (Negative) Urine Glucose (UA) Negative (Negative)
[2024-12-30] VITALS (9 sets, daily range): BP systolic 105–118; BP diastolic 51–77; PULSE 61–71; RESP 14–18; TEMP 36.4–36.8; O2SAT 95–100
[2024-12-30] MEDS: GABAPENTIN 300 MG CAPSULE PO ×2 (00:37→21:22)
[2024-12-30] MEDS: OMEPRAZOLE 20 MG CAPSULE DR 40 MG PO (06:38)
[2024-12-30 06:42] LABS: Hematocrit* 34.1 % (33.0-51.0); Hemoglobin* 10.3 gm/dL (12.0-16.0); Immature Granulocytes Abs Auto 0.01 K/uL (0.00-0.30); Immature Granulocytes Pct Auto 0.2 %; Mean Corpuscular HGB Conc 30 gm/dL (32-36); Mean Corpuscular Hemoglobin 22 pg (26-34); Mean Corpuscular Volume 71 fL (80-100); RDW Coefficient of Variation % 16.9 % (11.5-15.5); Red Blood Count* 4.78 m/uL (4.00-5.20); White Blood Count* 5.17 K/uL (4.50-11.00)
[2024-12-30 06:51] LABS: Lymphocytes Absolute Auto 0.70 K/uL (0.90-2.90); Slide Review Reflex No
[2024-12-30 06:58] LABS: Albumin* 4.2 g/dL (3.3-5.0); Chloride* 106 mmol/L (96-114); Sodium* 139 mmol/L (135-149)
[2024-12-30 06:59] LABS: Potassium* 3.9 mmol/L (3.6-5.1)
[2024-12-30 07:01] LABS: Alanine Aminotransferase* 27 U/L (4-35); Anion Gap 9 mEq/L (7-15); Aspartate Amino Transferase* 36 U/L (12-35); Blood Urea Nitrogen* 9 mg/dL (5-24); Carbon Dioxide* 24 mmol/L (20-32); Creatinine* 0.6 mg/dL (0.5-1.5); Est. Creatinine Clearance* 109.91; Estimated Glomerular Filt Rate 115 ml/min
[2024-12-30 07:02] LABS: Alkaline Phosphatase* 65 U/L (40-150); Bilirubin Total* 0.3 mg/dL (0.1-1.5); Calcium* 9.2 mg/dL (8.4-10.6); Glucose* 207 mg/dL (60-115); Total Protein* 7.3 g/dL (6.0-8.3)
--- NOTE | 2024-12-30 07:02 | PC.NURSE ---
End of shift: Pt pleasant, alert and oriented. Pt arrived to floor at 2049. VSS. Significant weakness in arms, hands and legs upon arrival. Throughout the shift arms and legs gained strength, though hands did not. Pt denies pain, dizziness, or nausea. Pt moves via SBA, tolerates well. Gait is slightly wobbly at times. Tele reads NSR. Pt in bed, appears to be resting, call light within reach.?
[2024-12-30] MEDS: SODIUM CHLORIDE 0.9 % (FLUSH) 10 ML SYRINGE 5 ML IVF ×2 (09:03→21:23)
[2024-12-30] MEDS: FERROUS SULFATE 325 MG TABLET PO (09:04)
[2024-12-30] MEDS: ESCITALOPRAM 10 MG TABLET PO (09:04)
--- NOTE | 2024-12-30 10:46 | P.ANES_ITS ---
Anesthesia Charges Start Date/Time Anesthesia Start Date: 12/30/24 Anesthesia Start Time: 10:30 Stop Date/Time Anesthesia Stop Date: 12/30/24 Anesthesia Stop Time: 10:42 Coding CPT Codes CPT Codes: ANESTH LUMBAR PUNCTURE - 92974 ([id number]) QZ - RISK MANAGEMENT DIRECTOR SVC W/O ADVERTISING PRODUCTION MANAGER BY , P3 - PATIENT W/SEVERE SYS DISEASE
--- NOTE | 2024-12-30 10:46 | W.ANESCHARGE ---
Anesthesia Charges Start Date/Time Anesthesia Start Date: 12/30/24 Anesthesia Start Time: 10:30 Stop Date/Time Anesthesia Stop Date: 12/30/24 Anesthesia Stop Time: 10:42 Coding CPT Codes CPT Codes: ANESTH LUMBAR PUNCTURE - 64411 ([id number]) QZ - SCRAP WORKER SVC W/O FLIGHT COMMUNICATIONS OPERATOR BY , P3 - PATIENT W/SEVERE SYS DISEASE
[2024-12-30 11:22] LABS: Glucose, CSF* 121 mg/dL (40-70); Total Volume 5.0 mL (0-6)
--- NOTE | 2024-12-30 11:38 | NUTR.NU ---
RDN with MD consult. Patient admitted with multiple sclerosis (new diagnosis 12/29/24). Medical history includes, but not limited to microcytic anemia, ADHD, Heterozygous factor V Leiden mutation, and hx of Venessa-en-y (2018). Current weight 188lbs 14.4oz, height 5ft 5in, and BMI 31.4 kg/m2. No recent weight history available for review at this time. No oral intakes recorded since admission at this time. Patient reports a good appetite and oral intakes prior to admission. Patient accepting of nutrition education for iron deficiency anemia. RDN discussed tips for increasing iron, ways to increase iron absorption and avoiding ways that decrease iron absorption. RDN also discussed iron content of foods, along with a sample meal plan. Also reviewed eating protein first at meals and adequate hydration. Handouts provided to support discussion. RDN contact information provided and encouraged patient to call with questions. RDN to follow up as needed.
[2024-12-30] MEDS: SODIUM CHLORIDE 0.9% IVPB (11:54)
[2024-12-30] MEDS: METHYLPREDNISOLONE SOD SUCC IVPB (11:54)
[2024-12-30 12:27] LABS: RBC, CSF 0 Cells/uL; WBC, CSF 4 Cells/uL
[2024-12-30 12:28] LABS: CSF Polynuclear Cells 100 %
--- NOTE | 2024-12-30 13:25 | PM.IMPN1 ---
Assessment and Plan Assessment and plan (1) Multiple sclerosis: Problem comment: - probable- new diagnosis 12/29/24 - Dr. Lepe of Teleneurology consulted from ER: recommends 1gm Solumedrol daily x5 d, serology screening for autoimmune disease (drawn 12/29), LP with routine studies + IgG synthesis rate and Oligoclonal bands LP today. Preliminary tests relatively normal. Status: Acute (2) Heterozygous factor V Leiden mutation: Problem comment: - no history of clot, diagnosed after term stillbirth in 2020 Status: Acute (3) Iron (Fe) deficiency anemia: Problem comment: History of Venessa-en-Y gastric bypass. Previously on iron. Restart iron therapy. Ferritin 4.5 on 12/30/2024 Status: Acute (4) ADHD: Status: Acute (5) History of Venessa-en-Y gastric bypass: Problem comment: At risk for nutritional deficiencies. Restart supplementation for iron, B12, vitamin-D, MVI Status: Acute Plan Continue in hospital for monitoring of neurologic deficits with planned discharge home when clinically improved. Total of 5 days of IV Solu-Medrol 1000 mg daily and outpatient follow-up with Neurology. Total Time Spent Total Time Spent: Total time spent today is 65 minutes in coordination of care, review of outside records, discussion with tele medicine providers and other providers, arranging outpatient appointments. Subjective Date Seen: 12/30/24 Interval history: 44-year-old female who was well until about 2:30 a.m. on December 29, the day of admission when she noted that she had some weakness and tingling in her upper extremities. During the morning this progressed to the point she came to the emergency department for evaluation. There she was found to have fairly profound weakness in her upper extremities and underwent evaluation including MRI of the head and cervical and thoracic spine. MRI was normal except for the cervical spine had lesions that were consistent with demyelinating disease. Patient has had no previous neurologic symptoms of any type. She has also not had any recent illness. No previous neck injury or neck pain or radicular symptoms. Emergency room physician consulted Neurology who felt this was possibly the 1st episode of multiple sclerosis. She was started on Solu-Medrol 1000 mg last evening. 12/30/2024: Patient reports feeling a little better today. She feels like she is getting a little bit more function in her hands which were almost entirely nonfunctional yesterday. Lumbar puncture obtained today and this is unremarkable except for mildly elevated CSF protein at 54 and glucose at 121. Notably her serum glucose was 106 on admission and 207 this morning likely due to Solu-Medrol. Pending tests of the CSF include oligoclonal bands and PCR for meningitis. Also pending is serum testing for AQP-4 IgG and MOG-IgG. Exam Narrative: Exam Narrative: No facial asymmetry. Eyes normal. Oropharynx normal. Upper extremities examined. Left shoulder 3/5 extension and 4/5 flexion. Left elbow 3/5 extension and 4/5 flexion. Left wrist 3+ over 5 extension and flexion. 3+ over 5 extension and flexion in the fingers. Right shoulder has 4 over 5 extension and 3 +/5 flexion, right elbow has for over 5 extension and 3+ over 5 flexion. Left wrist has 3/5 extension and 3+ over 5 flexion. Fingers with 3 minus/5 extension and 3+ over 5 flexion Const: Vital Signs, click to edit/add: Vital Signs - 24 hr 12/29/24 13:35 12/29/24 13:45 12/29/24 14:02 Temperature Pulse Rate Pulse Rate [Pulse Oximeter] Respiratory Rate 14 10 L 15 Blood Pressure 116/72 Blood Pressure [Le ft Arm] Blood Pressure [Le ft Upper Arm] Pulse Oximetry Oxygen Delivery [facility] 12/29/24 14:15 12/29/24 14:30 12/29/24 14:31 Temperature Pulse Rate Pulse Rate [Pulse Oximeter] Respiratory Rate 11 L 16 14 Blood Pressure 112/66 Blood Pressure [Le ft Arm] Blood Pressure [Le ft Upper Arm] Pulse Oximetry Oxygen Delivery [facility] 12/29/24 14:45 12/29/24 15:00 12/29/24 15:02 Temperature Pulse Rate Pulse Rate [Pulse Oximeter] Respiratory Rate 14 14 11 L Blood Pressure 92/69 Blood Pressure [Le ft Arm] Blood Pressure [Le ft Upper Arm] Pulse Oximetry Oxygen Delivery [facility] 12/29/24 15:30 12/29/24 15:31 12/29/24 15:45 Temperature Pulse Rate Pulse Rate [Pulse Oximeter] Respiratory Rate 11 L 16 19 Blood Pressure 114/73 Blood Pressure [Le ft Arm] Blood Pressure [Le ft Upper Arm] Pulse Oximetry Oxygen Delivery [facility] 12/29/24 16:00 12/29/24 16:02 12/29/24 16:06 Temperature Pulse Rate Pulse Rate [Pulse Oximeter] 55 L Respiratory Rate 18 13 18 Blood Pressure 109/65 Blood Pressure [Le ft Arm] Blood Pressure [Le ft Upper Arm] 109/65 Pulse Oximetry [facility] 12/[facility] 16:15 12/29/24 18:20 12/29/24 18:31 Temperature Pulse Rate 61 55 L Pulse Rate [Pulse Oximeter] Respiratory Rate 17 Blood Pressure 109/61 Blood Pressure [Le ft Arm] Blood Pressure [Le ft Upper Arm] Pulse Oximetry 98 100 Oxygen Delivery [facility] 12/29/24 18:32 12/29/24 18:45 12/29/24 18:53 Temperature Pulse Rate 55 L 56 L 55 L Pulse Rate [Pulse Oximeter] Respiratory Rate Blood Pressure 110/65 Blood Pressure [Le ft Arm] Blood Pressure [Le ft Upper Arm] Pulse Oximetry 99 99 99 Oxygen Delivery [facility] 12/29/24 18:56 12/29/24 19:03 12/29/24 19:04 Temperature Pulse Rate 58 L 55 L Pulse Rate [Pulse Oximeter] 55 L Respiratory Rate Blood Pressure 110/76 Blood Pressure [Le ft Arm] Blood Pressure [Le ft Upper Arm] 110/65 Pulse Oximetry 99 99 99 Oxygen Delivery [facility] Room Air 12/29/24 19:15 12/29/24 19:31 12/29/24 20:01 Temperature Pulse Rate 51 L Pulse Rate [Pulse Oximeter] Respiratory Rate Blood Pressure 115/70 113/73 Blood Pressure [Le ft Arm] Blood Pressure [Le ft Upper Arm] Pulse Oximetry 98 Oxygen Delivery [facility] 12/29/24 20:31 12/29/24 20:50 12/29/24 20:50 Temperature 98.1 F Pulse Rate Pulse Rate [Pulse Oximeter] 56 L Respiratory Rate 14 16 Blood Pressure 121/69 Blood Pressure [Le ft Arm] 106/60 Blood Pressure [Le ft Upper Arm] Pulse Oximetry 98 98 Oxygen Delivery [facility] Room Air Room Air 12/29/24 23:00 12/29/24 23:00 12/29/24 23:38 Temperature 97.6 F Pulse Rate Pulse Rate [Pulse Oximeter] 56 L 56 L Respiratory Rate 16 16 Blood Pressure Blood Pressure [Le ft Arm] 112/63 Blood Pressure [Le ft Upper Arm] Pulse Oximetry 99 98 Oxygen Delivery [facility] Room Air 12/30/24 01:29 12/30/24 02:40 12/30/24 07:00 Temperature 97.8 F 97.8 F Pulse Rate 71 Pulse Rate [Pulse Oximeter] 62 62 Respiratory Rate 18 16 Blood Pressure Blood Pressure [Le ft Arm] 117/55 L 106/77 Blood Pressure [Le ft Upper Arm] Pulse Oximetry 98 100 Oxygen Delivery [facility] Room Air Room Air 12/30/24 07:00 12/30/24 07:00 12/30/24 07:00 Temperature Pulse Rate 64 Pulse Rate [Pulse Oximeter] 62 Respiratory Rate 16 Blood Pressure Blood Pressure [Le ft Arm] Blood Pressure [Le ft Upper Arm] Pulse Oximetry 100 Oxygen Delivery [facility] 12/30/24 11:00 Temperature 98.2 F Pulse Rate Pulse Rate [Pulse Oximeter] 62 Respiratory Rate 16 Blood Pressure Blood Pressure [Le ft Arm] 113/63 Blood Pressure [Le ft Upper Arm] Pulse Oximetry 98 Oxygen Delivery [facility] Room Air Labs Labs: Laboratory Results - last 24 hr 12/29/24 12/30/24 12/30/24 12:42 06:29 10:34 WBC 5.17 RBC 4.78 Hgb 10.3 L Hct 34.1 MCV 71 L MCH 22 L MCHC 30 L RDW Coeff of Sandra 16.9 H Plt Count 397 Neut % (Auto) 84.5 H Lymph % (Auto) 14.3 L [place] % (Auto) 1.0 Eos % (Auto) 0.0 Baso % (Auto) 0.0 Neut # (Auto) 4.40 Lymph # (Auto) 0.70 L [place] # (Auto) 0.10 Eos # (Auto) 0.00 Baso # (Auto) 0.00 Abs Immat Gran (auto) 0.01 Imm/Tot Granulo (auto) 0.2 Diff Slide Review Acceptable Review Sodium 139 Potassium 3.9 Chloride 106 Carbon Dioxide 24 Anion Gap 9 BUN 9 Creatinine 0.6 Estimated Creat Clear 109.91 Estimated GFR 115 Glucose 207 H Calcium 9.2 Ferritin 4.5 L Total Bilirubin 0.3 AST 36 H ALT 27 Alkaline Phosphatase 65 Total Protein 7.3 Albumin 4.2 CSF Volume 5.0 CSF Appearance Clear CSF Color Colorless CSF WBC 4 CSF RBC 0 CSF Mononuclear Cells 0 CSF Polynuclear WBCs 100 CSF Glucose 121 H CSF Total Protein 54 H SARS-CoV-2 (PCR) Negative SARS-CoV-2 Influenza Type A (PCR) Negative PCR FLU A Influenza Type B (PCR) Negative PCR FLU B RSV (PCR) Negative PCR RSV
[2024-12-30 14:30] LABS: Vitamin D 25 Hydroxy* 33 ng/mL (30-80)
--- NOTE | 2024-12-30 14:53 | PC.NURSE ---
Patient received new MS diagnosis this visit, She is still experiencing bilat hand numbness and tingling as well as unsteady gait. She ambulates with stand by assist and is call light appropriate. Patients PIV in Right forearm is patent. NSR on registered nurse cardiac. She had a lumbar puncture by [facility], labs sent. Her VSS and she is alert and oriented. No skin issues noted and at bedside. She also had tele health assessment with Meghana @ [facility] and [facility].
[2024-12-30 15:30] LABS: Vitamin B12* 294 pg/mL (243-894)
--- NOTE | 2024-12-30 19:17 | PC.NURSE ---
Pt is alert and oriented. VSS, weakness in upper extremities. pt states improvement in her left hand. Pt denies pain and is a standby assist.
[2024-12-30] MEDS: ENOXAPARIN 40 MG/0.4 ML INJ SUBCUT (21:23)
[2024-12-31] VITALS (7 sets, daily range): BP systolic 106–115; BP diastolic 57–74; PULSE 50–69; RESP 14–18; TEMP 36.5–36.8; O2SAT 92–99
[2024-12-31] MEDS: OMEPRAZOLE 20 MG CAPSULE DR 40 MG PO (06:57)
--- NOTE | 2024-12-31 07:04 | PC.NURSE ---
End of shift: Pt pleasant, alert and oriented. Pt states some tingling and restlessness in legs, improved with gabapentin. Pt states strength in hands and legs has improved since yesterday. The left side is able to sheet taker and hold, and the right side is not. Pt denies pain, dizziness, or nausea. Pt moves via SBA, tolerates well. Pt stated feeling steadier when walking. Pt in bed, appears to be resting, call light within reach.?
[2024-12-31] MEDS: SODIUM CHLORIDE 0.9% IVPB (09:10)
[2024-12-31] MEDS: METHYLPREDNISOLONE SOD SUCC IVPB (09:10)
[2024-12-31] MEDS: MULTIVITAMIN/MINERALS 1 TABLET 1 TAB PO (09:11)
[2024-12-31] MEDS: ESCITALOPRAM 10 MG TABLET PO (09:11)
[2024-12-31] MEDS: FERROUS SULFATE 325 MG TABLET PO (09:11)
[2024-12-31] MEDS: SODIUM CHLORIDE 0.9 % (FLUSH) 10 ML SYRINGE 5 ML IVF ×2 (09:28→21:49)
[2024-12-31] MEDS: IRON SUCROSE COMPLEX 200 MG in 0.9 % SODIUM CHLORIDE 100 ml 100 ML 440 MG IVPB (10:41)
--- NOTE | 2024-12-31 14:48 | PM.IMPN1 ---
Assessment and Plan Assessment and plan (1) Multiple sclerosis: Problem comment: - probable- new diagnosis 12/29/24 - Dr. Lepe of Teleneurology consulted from ER: recommends 1gm Solumedrol daily x5 d, serology screening for autoimmune disease (drawn 12/29), LP with routine studies + IgG synthesis rate and Oligoclonal bands pending LP today. Preliminary tests relatively normal. Status: Acute (2) Heterozygous factor V Leiden mutation: Problem comment: - no history of clot, diagnosed after term stillbirth in 2020 Status: Acute (3) Iron (Fe) deficiency anemia: Problem comment: History of Venessa-en-Y gastric bypass. Previously on iron. Restart iron therapy. Ferritin 4.5 on 12/30/2024. One dose IV iron now Status: Acute (4) ADHD: Status: Acute (5) History of Venessa-en-Y gastric bypass: Problem comment: At risk for nutritional deficiencies. Restart supplementation for iron, B12, vitamin-D, MVI Status: Acute (6) Nutritional deficiency: Problem comment: Status post Venessa-en-Y gastric bypass. Recommend the following long-term supplements: Oral iron/ferrous sulfate with ongoing monitoring of ferritin. May need IV iron if not replenishing iron stores. Vitamin B12, vitamin-D, multivitamin. Consider further testing of micronutrients if ongoing concerns. Status: Acute Plan Continue in hospital for IV steroids and ongoing therapy to manage significant upper extremity deficits. Anticipate going home after 5 days of IV Solu-Medrol with expected clinical improvement. Total Time Spent Total Time Spent: Total time spent today is 45 minutes in reviewing outside records, coordination of care and discussing with patient management of upper extremity deficits, ongoing neurologic evaluation and ongoing treatment of nutritional concerns Subjective Date Seen: 12/31/24 Interval history: 44-year-old female who was well until about 2:30 a.m. on December 29, the day of admission when she noted that she had some weakness and tingling in her upper extremities. During the morning this progressed to the point she came to the emergency department for evaluation. There she was found to have fairly profound weakness in her upper extremities and underwent evaluation including MRI of the head and cervical and thoracic spine. MRI was normal except for the cervical spine had lesions that were consistent with demyelinating disease. Patient has had no previous neurologic symptoms of any type. She has also not had any recent illness. No previous neck injury or neck pain or radicular symptoms. Emergency room physician consulted Neurology who felt this was possibly the 1st episode of multiple sclerosis. She was started on Solu-Medrol 1000 mg last evening. 12/30/2024: Patient reports feeling a little better today. She feels like she is getting a little bit more function in her hands which were almost entirely nonfunctional yesterday. Lumbar puncture obtained today and this is unremarkable except for mildly elevated CSF protein at 54 and glucose at 121. Notably her serum glucose was 106 on admission and 207 this morning likely due to Solu-Medrol. Pending tests of the CSF include oligoclonal bands and PCR for meningitis. Also pending is serum testing for AQP-4 IgG and MOG-IgG. 12/31/2024: Patient reports continued to improve. She thinks her left hand is improving more than her right. She is right handed. She has been able to do more functionally with her left hand today. On admission she had some tingling in her left leg and that also seems to be better. Last night she took gabapentin because she said she had restless legs. She was having some paresthesias in her legs as well as a sense of needing to move her legs. She has had the gabapentin worked very effectively for her. She has no other concerns. Exam Narrative: Exam Narrative: She is alert and appears in no distress. Left upper extremity has 4/5 strength in shoulder flexion extension and elbow flexion and extension. 3+ over 5 in left wrist flexion and extension and corporate communications manager and finger extension. Right upper extremity with 3+ over 5 shoulder flexion and extension and elbow flexion and extension. Wrist has 3+ over 5 flexion and extension and corporate communications manager strength and finger extension Const: Vital Signs, click to edit/add: Vital Signs - 24 hr 12/30/24 15:00 12/30/24 15:00 12/30/24 16:09 Temperature 98.2 F Pulse Rate 64 Pulse Rate [Pulse Oximeter] 68 Respiratory Rate 18 Blood Pressure [Le ft Arm] 118/59 L Pulse Oximetry 98 98 Oxygen Delivery Me thod Room Air 12/30/24 19:00 12/30/24 23:00 12/30/24 23:00 Temperature 97.6 F Pulse Rate Pulse Rate [Pulse Oximeter] 62 62 Respiratory Rate 18 18 Blood Pressure [Le ft Arm] 115/72 Pulse Oximetry 98 95 Oxygen Delivery Me thod Room Air 12/30/24 23:24 12/31/24 03:39 12/31/24 07:00 Temperature 98.2 F 98.2 F 97.7 F Pulse Rate Pulse Rate [Pulse Oximeter] 61 65 57 L Respiratory Rate 14 14 17 Blood Pressure [Le ft Arm] 105/51 L 115/57 L 111/70 Pulse Oximetry 97 97 99 Oxygen Delivery Me thod Room Air Room Air Room Air 12/31/24 07:00 12/31/24 11:00 Temperature 98.2 F Pulse Rate Pulse Rate [Pulse Oximeter] 59 L Respiratory Rate 17 Blood Pressure [Le ft Arm] 110/67 Pulse Oximetry 99 99 Oxygen Delivery Me thod Room Air Labs Labs: Laboratory Results - last 24 hr 12/30/24 06:29 Vitamin B12 294
--- NOTE | 2024-12-31 18:48 | PC.NURSE ---
Pt is alert and oriented. Pt has moderate weakness on right and left upper extremities. Pt verbalizes having better movement in her hands compared to yesterday.?VSS, denies pain. pt is independent.
[2024-12-31] MEDS: ENOXAPARIN 40 MG/0.4 ML INJ SUBCUT (21:47)
[2024-12-31] MEDS: GABAPENTIN 300 MG CAPSULE PO (21:48)
[2025-01-01 04:23] VITALS: BP 101/61; PULSE 56; RESP 18; TEMP 36.6; O2SAT 99
--- NOTE | 2025-01-01 06:10 | PC.NURSE ---
End of shift ([id number]): Pt pleasant, alert and oriented states strength in hands and legs has improved since yesterday. Pt able to open left hand completely. ?Pt denies pain, dizziness, or nausea. Pt moves Independently. Pt stated feeling steadier when walking. Pt in bed, appears to be resting, call light within reach.? ?
[2025-01-01] MEDS: OMEPRAZOLE 20 MG CAPSULE DR 40 MG PO (06:34)
[2025-01-01 07:00] VITALS: BP 115/71; PULSE 85; RESP 18; TEMP 36.6; O2SAT 95
[2025-01-01 08:44] LABS: Anti-Nuclear Ab(ANA)IgG ELISA Detected (None Detected)
[2025-01-01] MEDS: FERROUS SULFATE 325 MG TABLET PO (10:01)
[2025-01-01] MEDS: ESCITALOPRAM 10 MG TABLET PO (10:01)
[2025-01-01] MEDS: MULTIVITAMIN/MINERALS 1 TABLET 1 TAB PO (10:01)
[2025-01-01] MEDS: SODIUM CHLORIDE 0.9% IVPB (10:02)
[2025-01-01] MEDS: METHYLPREDNISOLONE SOD SUCC IVPB (10:02)
[2025-01-01] MEDS: SODIUM CHLORIDE 0.9 % (FLUSH) 10 ML SYRINGE 5 ML IVF ×2 (14:03→20:59)
--- NOTE | 2025-01-01 14:22 | P.IMPN_ITS ---
Assessment and Plan Assessment and plan (1) Multiple sclerosis: Problem comment: - probable- new diagnosis 12/29/24 - Dr. Lepe of Teleneurology consulted from ER: recommends 1gm Solumedrol daily x5 d, serology screening for autoimmune disease (drawn 12/29), LP with routine studies + IgG synthesis rate and Oligoclonal bands pending LP today. Preliminary tests relatively normal. Status: Acute (2) Heterozygous factor V Leiden mutation: Problem comment: - no history of clot, diagnosed after term stillbirth in 2020 Status: Acute (3) Iron (Fe) deficiency anemia: Problem comment: History of Venessa-en-Y gastric bypass. Previously on iron. Restart iron therapy. Ferritin 4.5 on 12/30/2024. One dose IV iron now Status: Acute (4) ADHD: Status: Acute (5) History of Venessa-en-Y gastric bypass: Problem comment: At risk for nutritional deficiencies. Restart supplementation for iron, B12, vitamin-D, MVI Status: Acute (6) Nutritional deficiency: Problem comment: Status post Venessa-en-Y gastric bypass. Recommend the following long-term supplements: Oral iron/ferrous sulfate with ongoing monitoring of ferritin. May need IV iron if not replenishing iron stores. Vitamin B12, vitamin-D, multivitamin. Consider further testing of micronutrients if ongoing concerns. Status: Acute Plan Continue in hospital for therapy and IV steroids with plan to discharge probably tomorrow to home with outpatient neurology follow-up. Total Time Spent Total Time Spent: Total time spent today is 40 minutes in coordination of care discussing with patient other providers ongoing management of probable MS and nutritional deficiencies Subjective Date Seen: 01/01/25 Interval history: 44-year-old female who was well until about 2:30 a.m. on December 29, the day of admission when she noted that she had some weakness and tingling in her upper extremities. During the morning this progressed to the point she came to the emergency department for evaluation. There she was found to have fairly profound weakness in her upper extremities and underwent evaluation including MRI of the head and cervical and thoracic spine. MRI was normal except for the cervical spine had lesions that were consistent with demyelinating disease. Patient has had no previous neurologic symptoms of any type. She has also not had any recent illness. No previous neck injury or neck pain or radicular symptoms. Emergency room physician consulted Neurology who felt this was possibly the 1st episode of multiple sclerosis. She was started on Solu-Medrol 1000 mg last evening. 12/30/2024: Patient reports feeling a little better today. She feels like she is getting a little bit more function in her hands which were almost entirely nonfunctional yesterday. Lumbar puncture obtained today and this is unremarkable except for mildly elevated CSF protein at 54 and glucose at 121. Notably her serum glucose was 106 on admission and 207 this morning likely due to Solu-Medrol. Pending tests of the CSF include oligoclonal bands and PCR for meningitis. Also pending is serum testing for AQP-4 IgG and MOG-IgG. 12/31/2024: Patient reports continued to improve. She thinks her left hand is improving more than her right. She is right handed. She has been able to do more functionally with her left hand today. On admission she had some tingling in her left leg and that also seems to be better. Last night she took gabapentin because she said she had restless legs. She was having some paresthesias in her legs as well as a sense of needing to move her legs. She has had the gabapentin worked very effectively for her. She has no other co ncerns. 01/01/2025: Patient reports that she feels like she is getting better. Left hand is improving more than the right hand. She reports no other concerns today. Exam Narrative: Exam Narrative: She is alert pleasant and in no distress. Upper extremities examined. Right shoulder and elbow modestly improved in strength. 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 Left shoulder flexion and extension is 4+ over 5. Left elbow flexion and extension for over 5. Left wrist extension and finger extension for over 5 and cabinetmaker supervisor strength 4/5. Const: Vital Signs, click to edit/add: Vital Signs - 24 hr 12/31/24 15:00 12/31/24 15:00 12/31/24 20:32 Temperature 98.2 F Pulse Rate [Pulse Oximeter] 69 51 L Respiratory Rate 18 17 Blood Pressure [Le ft Arm] 106/58 L Blood Pressure [Ri ght Arm] 111/74 Pulse Oximetry 98 98 97 Oxygen Delivery Me thod Room Air Room Air 12/31/24 23:22 12/31/24 23:50 12/31/24 23:50 Temperature 97.9 F Pulse Rate [Pulse Oximeter] 50 L Respiratory Rate 17 17 Blood Pressure [Le ft Arm] Blood Pressure [Ri ght Arm] 107/61 Pulse Oximetry 98 92 Oxygen Delivery Me thod 01/01/25 04:23 01/01/25 07:00 01/01/25 07:00 Temperature 97.9 F Pulse Rate [Pulse Oximeter] 56 L 85 Respiratory Rate 18 18 Blood Pressure [Le ft Arm] Blood Pressure [Ri ght Arm] 101/61 Pulse Oximetry 99 95 Oxygen Delivery Me thod Room Air 01/01/25 07:00 Temperature 98 F Pulse Rate [Pulse Oximeter] 85 Respiratory Rate 18 Blood Pressure [Le ft Arm] 115/71 Blood Pressure [Ri ght Arm] Pulse Oximetry 95 Oxygen Delivery Me thod Room Air Documenting provider has reviewed patient's vital signs: yes Labs Labs: Laboratory Results - last 24 hr 12/29/24 21:05 Fld MEIR IgG AYESHA Detected A Rheum Factor (Ref Lab) <10 Anti-ds DNA IgG Ab 13 Complement C3 105 Complement C4 12
[2025-01-01 15:13] VITALS: BP 108/56; PULSE 53; RESP 14; TEMP 36.7; O2SAT 97
--- NOTE | 2025-01-01 18:29 | PC.NURSE ---
End of Shift ([id number]): Patient pleasant and cooperative. Patient vitally stable, lungs clear, BS WNL, IV SL and intact. Patient has moderate weakness in both upper extremities, she can not fully graph both of her hands closed, right had grasp is weaker than the left. Patient denies pain, and is independent with ambulation. Patient tolerating regular diet, and urinating well. Patient has been up in chair and ambulating the halls.
[2025-01-01 19:40] VITALS: BP 126/61; PULSE 61; RESP 18; TEMP 36.6; O2SAT 98
[2025-01-01] MEDS: GABAPENTIN 300 MG CAPSULE PO ×2 (20:57→20:58)
[2025-01-01] MEDS: ENOXAPARIN 40 MG/0.4 ML INJ SUBCUT (20:57)
[2025-01-01 23:00] VITALS: PULSE 57; RESP 16
[2025-01-01 23:30] VITALS: BP 106/61; PULSE 57; RESP 16; TEMP 36.8; O2SAT 98
[2025-01-02 03:15] VITALS: BP 105/64; PULSE 52; RESP 16; TEMP 36.3; O2SAT 98
--- NOTE | 2025-01-02 06:14 | PC.NURSE ---
end of shift: no remarkable change. AOX4, VSS. Pt is pleasant, active participant in her care. Pt AMB hallways. Pt. slept through the night w/ exception to VS assessments.
[2025-01-02] MEDS: OMEPRAZOLE 20 MG CAPSULE DR 40 MG PO (06:35)
[2025-01-02 07:31] VITALS: BP 112/65; PULSE 46; RESP 14; TEMP 36.4; O2SAT 97
[2025-01-02] MEDS: FERROUS SULFATE 325 MG TABLET PO (07:36)
--- NOTE | 2025-01-02 08:59 | PM.DS1 ---
DS: Providers Provider Time Seen by Provider: 08:42 Date Seen: 01/02/25 Date of admission: 12/29/24 20:44 Primary care physician: Luda Orosco APRN, DAY CARE PROVIDER Admitting Clinician: Melissa Phelps MD Consults: 12/29/24 21:55 Consult to Nutrition [CONS] Routine Comment: Reason for consult:: Miscellaneous Comment: anemia, post Venessa-en-Y Consult to Physical Therapy [CONS] Routine Comment: Reason(s) for PT Consult:: Evaluate and Treat Any Restrictions?:: No Restrictions 12/29/24 21:57 Consult to Occupational Therapy [CONS] Routine Comment: Reason(s) for OT Consult:: Evaluate and Treat Any Restrictions?:: No Restrictions Attending Physician on discharge: Yovana Ferraro MD Date of Discharge: 01/02/25 DS: Diagnosis Discharge Diagnosis (1) Multiple sclerosis: Status: Acute Problem details: - probable- new diagnosis 12/29/24 - Dr. Lepe of Teleneurology consulted from ER: recommends 1gm Solumedrol daily x5 d, serology screening for autoimmune disease (drawn 12/29), LP with routine studies + IgG synthesis rate and Oligoclonal bands pending LP 12/30/24. Preliminary tests relatively normal. - Symptoms improving with high dose steroids. Last dose today. D/ch home with PT/OT as outpatient. Off work until reevaluated by PCP next week. (2) Heterozygous factor V Leiden mutation: Status: Chronic Problem details: - no history of clot, diagnosed after term stillbirth in 2020 (3) Iron (Fe) deficiency anemia: Status: Acute Problem details: History of Venessa-en-Y gastric bypass. Previously on iron. Ferritin 4.5 on 12/30/2024. One dose IV iron now. Follow up with PCP as outpatient. Likely not absorbing oral iron due to h/o of gastric bypass. Will hold off on oral iron for now, consider further iron infusions as outpatient as needed. (4) ADHD: Status: Chronic (5) History of Venessa-en-Y gastric bypass: Status: Chronic Problem details: At risk for nutritional deficiencies. Restart supplementation for B12, vitamin-D, MVI, was given IV iron infusion here (6) Microcytic anemia: Status: Acute Problem details: - history of this, likely related to Venessa-en-Y - as above (7) Nutritional deficiency: Status: Acute Problem details: Status post Venessa-en-Y gastric bypass. Recommend the following long-term supplements: Oral iron/ferrous sulfate with ongoing monitoring of ferritin. May need IV iron if not replenishing iron stores. Vitamin B12, vitamin-D, multivitamin. Consider further testing of micronutrients if ongoing concerns. DS: Summary Hospital Course Hospital Course: NOTE TO PCP: Please f/u on send out labs from this hospital stay. Also, she may need further iron infusions in the future. I favor that as opposed to oral iron therpy given her h/o Venessa en Y gastric bypass. Per H&P: Ondina Castro is a 44 year old female who presented to the ER today for numbness, tingling, and decreased strength in her BUEs. Symptoms first noted around 0200 when she got up to use the bathroom; also noted some numbness and tingling in her RLE, but able to ambulate. Her upper extremity symptoms progressed to the point where she couldn't hold lift her arms above her head, hold her daughter, or perform ADLs, so presented to ER with her . ER Course and Findings: - microcytic anemia (Hgb 9.5, MCV 72), history of this - reassuring electrolytes/renal function - MRI of Brain and T-Spine reassuring, C-spine MRI with findings concerning for demyelination - Dr. Donahue of TeleNeurology consulted on patient, A/P from her note below Recommendations: Would initiate high dose Solumedrol treatment (1gm daily for 5 days) LP - sending routine studies, IgG synthesis rate, OCB Send serologies screening for autoimmune disease Formal consult from our service tomorrow Formal Teleneurology consult recommendations from 01/01: --IV Solu-Medrol: give 1000mg daily for total of 5 doses (today is day 4/5) --PPI while on the IV steroids --Do not recommend oral taper or oral steroids after IV steroids is completed --Blood tests to obtain: aquaporin-4 Ab, MOG Ab --Start vitamin D 1000 IU daily --Outpatient Neurology Clinic referral ([facility], [facility], or [facility]) --Therapy --We will sign off. Please contact the [facility] if there are any questions. . Ondina made improvement and has completed 5/5 doses of solumedrol. Testing above sent. She is discharged today in improving condition with a note for work to be reevaluated by PCP next week. F/u with neurology and therapies as outpatient. Please also see diagnoses above for more details. Time Spent with Patient Time attestation: Total time spent providing and/or coordinating discharge services: Today I spent 40 minutes seeing and discharging the patient, reviewing [facility] notes/diagnostics/labs, discussing the care plan with our care team that includes social work, PT/OT, pharmacy, RT, intermediate and documenting my impressions and plan in the medical record. Exam Narrative: Exam Narrative: General: No acute distress. Awake, alert, oriented. Talkative. No pallor. No jaundice. Oropharynx: Clear. Mucous membranes moist. Cardiovascular: Regular rate and rhythm. No murmurs, gallops, or rubs. Respiratory: Clear to auscultation bilaterally. No wheezes or crackles. Neuro: Upper extremities examined. 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 Left shoulder and elbow flexion and extension is 5/5. Left lace paper machine operator and extension strength is 4 out 5. Const: Vital Signs, click to edit/add: Vital Signs - 24 hr 01/01/25 15:13 01/01/25 15:13 01/01/25 15:13 Temperature 98.1 F Pulse Rate [Pulse Oximeter] 53 L 53 L Respiratory Rate 14 14 Blood Pressure [Le ft Arm] 108/56 L Blood Pressure [Ri ght Arm] Pulse Oximetry 97 97 Oxygen Delivery Me thod Room Air 01/01/25 19:40 01/01/25 23:00 01/01/25 23:30 Temperature 97.9 F 98.2 F Pulse Rate [Pulse Oximeter] 61 57 L 57 L Respiratory Rate 18 16 16 Blood Pressure [Le ft Arm] Blood Pressure [Ri ght Arm] 126/61 106/61 Pulse Oximetry 98 98 Oxygen Delivery Me thod Room Air Room Air 01/02/25 03:15 01/02/25 07:31 01/02/25 07:31 Temperature 97.4 F L 97.6 F Pulse Rate [Pulse Oximeter] 52 L 46 L 46 L Respiratory Rate 16 14 14 Blood Pressure [Le ft Arm] Blood Pressure [Ri ght Arm] 105/64 112/65 Pulse Oximetry 98 97 Oxygen Delivery Me thod Room Air Room Air DS: Data Data Completed and Pending Completed studies during hospitalization: 12/29/2024 EKG: Sinus bradycardia, 54 beats per minute, otherwise normal EKG. Ordering Physician: Angelo Diaz M.D. Date of Service: 12/29/24 Procedure(s): MR head/brain wo/w con Accession Number(s): [id number] cc: Luda FLOWERS CNP; Angelo Diaz M.D.~ Patient: ONDINA CASTRO Facility: [facility] . Site : 1980 Study: MRI-Head W/ and W/O Cont 20 CC DOATERM-12/29/2024 6:30:52 PM Ordering Physician: Joe Stephens Final Report: Indication: Weakness/numbness. Technique: Multiplanar, multisequence MRI of the brain was performed without and with intravenous contrast. Contrast: 20 cc Dotarem. Comparison: None relevant available at this institution. Findings: The corpus callosum, pituitary gland and clivus appear intact. Craniocervical junction appears preserved. There is no restricted diffusion. No intracranial hemorrhage. The ventricles are proportionate to the cerebral sulci. The 4th ventricle appears midline. The basal cisterns appear patent. No abnormal extra-axial fluid collection identified. There is no intracranial mass, abnormal mass-effect or midline shift identified. No abnormal enhancement. Major intracranial vascular flow voids appear grossly intact. Both globes are preserved. Impression: No acute intracranial abnormality. Dictated by Larry Solares MD @ 12/29/2024 6:45:54 PM (Electronic Signature) Dictated By: Coleman Solares M.D. Signed By: 12/30/24799 DD/ 44 TD/TT: 12/30/24799 Broom Bundler: RISHABH Ordering Physician: Angelo Diaz M.D. Date of Service: 12/29/24 Procedure(s): MR cervical spine wo/w con Accession Number(s): [id number] cc: Luda FLOWERS CNP; Angelo Diaz M.D.~ Patient: [facility] Facility: [facility] . Site : 1980 Study: MRI-Spine Cervical W/WO 20 CC DOTAREM-12/29/2024 6:31:18 PM Ordering Physician: Joe Stephens Final Report: Indication: Weakness/numbness. Technique: MRI of the cervical spine was performed without and with the use of intravenous contrast. Contrast: 20 cc Dotarem. Comparison: MRI brain same day. Findings: The vertebral body heights appear maintained without evidence of fracture. No discrete T1 hypointense marrow infiltrating process. Mild disc degeneration without significant height loss. Several foci of abnormal cord signal noted at the C4, C5 and C6-7 levels. No abnormal enhancement. C2-3: No spinal canal or neural foraminal narrowing. C3-4: Minimal disc bulge without spinal canal or neural foraminal narrowing. C4-5: Disc degeneration. No spinal canal narrowing. Mild neural foraminal narrowing. C5-6: Disc degeneration. No spinal canal or neural foraminal narrowing. C6-7: Disc degeneration. Shallow disc bulge. No spinal canal or neural foraminal narrowing. C7-T1: No spinal canal or neural foraminal narrowing. Impression: 1. Scattered foci of cord signal abnormality involving the mid to lower cervical cord. Findings are concerning for demyelination. 2. No abnormal enhancement to suggest active process. 3. Minimal spondylosis. Dictated by Larry Solares MD @ 12/29/2024 7:11:38 PM (Electronic Signature) Dictated By: Coleman Solares M.D. Signed By: 12/30/24800 DD/ 10 TD/TT: 12/30/24800 Broom Bundler: RISHABH Ordering Physician: Angelo Diaz M.D. Date of Service: 12/29/24 Procedure(s): MR thoracic spine wo/w con Accession Number(s): [id number] cc: Luda FLOWERS CNP; Angelo Diaz M.D.~ Patient: [facility] Facility: [facility] . Site : 1980 Study: MRI-Spine Thoracic W/WO 20 CC DOTAREM-12/29/2024 6:31:43 PM Ordering Physician: Joe Stephens Final Report: Indication: Weakness/numbness. Technique: Multiplanar, multisequence MRI of the thoracic spine was performed without and with the use of 20 cc Dotarem intravenous contrast. Comparison: MRI cervical spine the same day. Findings: The vertebral body heights are maintained without evidence of fracture. No marrow infiltrative process. Mild multilevel disc height loss and degeneration. Slightly exaggerated thoracic kyphosis. No abnormal cord signal. No abnormal enhancement. Mild spondylosis, without overt evidence of spinal canal or neural foraminal compromise throughout the thoracic spine. Impression: 1. Mild spondylosis, without spinal canal or neural foraminal narrowing. 2. No abnormal cord signal. Dictated by Larry Solares MD @ 12/29/2024 7:14:53 PM (Electronic Signature) Dictated By: Coleman Solares M.D. Signed By: 12/30/24801 DD/ 13 TD/TT: 12/30/24800 Broom Bundler: RISHABH Labs on day of discharge: Labs from last 24 hours 12/31/24 08:50 Ceruloplasmin 31 Preliminary micro results at discharge 12/30/24 10:34 Body Fluid Culture - Preliminary Cerebrospinal Fluid NO GROWTH AFTER 72 HOURS Discharge Plan Discharge Disposition: Home, Self-Care Date of Admission: 12/29/24 20:44 Attending Provider on Discharge: Yovana Ferraro Primary Care Provider: Luda Orosco Condition: Improved Anticipated Discharge Date/Time: 01/02/25 10:00 Discharge Medications: New gabapentin 300 mg Capsule 300 mg PO HS PRN (Reason: Pain) Qty: 30 0RF multivitamin with folic acid [Thera] 400 mcg Tablet 1 tab PO DAILY Qty: 100 0RF cholecalciferol (vitamin D3) 25 mcg (1,000 unit) tablet,chewable 25 mcg PO DAILY Qty: 100 3RF cyanocobalamin (vitamin B-12) 1,000 mcg capsule 1,000 mcg PO DAILY Qty: 100 0RF Continued dextroamphetamine-amphetamine 10 mg tablet 1 tab PO DAILY dextroamphetamine-amphetamine 15 mg capsule,extended release 24hr 1 cap PO DAILY escitalopram oxalate 10 mg tablet 10 mg PO DAILY Discharge Orders: Discharge Order (Routine); Ordered 01/02/25 Ordered By: Yovana Ferraro Additional Instructions: Outpatient therapy Activity Level: Activity as Tolerated Discharge Diet: Regular Follow Up [facility] [Outside] Referral Note: Appointment to establish care with a neurologist for multiple sclerosis at next available appointment Provider,Not a Local [Non-Staff, Family Practice] Luda Orosco APRN, DAY CARE PROVIDER [Primary Care Provider, Family Practice] Referral Note: follow up in one week. Labs from hospital stay sent out for reference lab should be available to review Forms: Patient Belongings, Work/School Release, [employer] Info Instructions
[2025-01-02] MEDS: ESCITALOPRAM 10 MG TABLET PO (09:14)
[2025-01-02] MEDS: SODIUM CHLORIDE 0.9 % (FLUSH) 10 ML SYRINGE 5 ML IVF (09:15)
[2025-01-02] MEDS: METHYLPREDNISOLONE SOD SUCC IVPB (09:15)
[2025-01-02] MEDS: SODIUM CHLORIDE 0.9% IVPB (09:15)
[2025-01-02] MEDS: MULTIVITAMIN/MINERALS 1 TABLET 1 TAB PO (09:15)
--- NOTE | 2025-01-02 12:29 | PC.NURSE ---
Discharge: Patient pleasant and cooperative. Patient vitally stable, lungs clear, BS WNL, IV removed, catheter intact. Patient denies pain and is independent with ambulations. Right hand grasp is weaker than left, patient can open left hand, but not right hand, patient also reports she has feeling in her hands (can feel touch), and tingling has moved down to her finger tips, as before it had extended up into the arms.. Patient is tolerating regular diet, urinating well, and had 1 BM. Patient signed belongings sheet and discharge form. Patient had no further questions regarding education. Patient left the floor by foot with her and belongings at 1200.
[2025-01-03 10:56] LABS: Copper, Serum/Plasma 120.9 ug/dL (80.0-155.0); Zinc, Serum/Plasma 49.7 ug/dL (60.0-120.0)
[2025-01-04 00:11] LABS: ANA Pattern Homogeneous; ANA Titer 1:80; Antinuclear AntibodyHEp-2 Detected (<1:80)
--- NOTE | 2025-01-06 09:21 | PC.NURSE ---
Corporate Officer accessed chart per patient request to access patient notes and imaging reports to send o [facility] in [place] for an appointment tomorrow. Medical records called and MRI imaging can be sent to [facility] which is affiliated with the clinic. Patient confirmed request to send all information to clinic.
== END 2025-01-02 12:00 | disposition home or self-care (01) | DRG 43 ==
LOC: ED 19:58 → MEDSURG 20:44
PROVIDERS: Family Medicine; Admitting Provider Family Medicine; Emergency Provider Emergency Medicine; PCP Nurse Practitioner Family; Visit Provider Family Medicine
DX: G35 Multiple sclerosis (principal); R53.1 Weakness; D50.9 Iron deficiency anemia, unspecified; D68.51 Activated protein C resistance; Z98.84 Bariatric surgery status; F90.9 Attention-deficit hyperactivity disorder, unspecified type; R20.2 Paresthesia of skin; E63.9 Nutritional deficiency, unspecified
CPT/HCPCS: 00635; 36415; 70553; 72156; 72157; 80048; 80053; 81001; 81025; 82306; 82390; 82525; 82607; 82728; 82945; 82947; 83605; 83916; 84157; 84630; 85025; 85610; 86038; 86039; 86140; 86160; 86225; 86431; 87070; 87483; 87637; 89051; 93005; 94761; 97110; 97112; 97116; 97162; 97165; 97530; 97535; 99233; 99284; 99285; G0425; A9153; A9270; A9575; J1650; J1756; J2919; J7050

== ENCOUNTER 2025-01-25 13:49 | Outpatient (CLI) | payer BC, SELFPAY | END 2025-01-25 13:50 | disposition home or self-care (01) | LOC: KYNREF 13:51 | PROVIDERS: PCP Nurse Practitioner Family; Visit Provider Nurse Practitioner Family | DX: G35.D Multiple sclerosis, unspecified (principal); D50.9 Iron deficiency anemia, unspecified; E63.9 Nutritional deficiency, unspecified; D68.51 Activated protein C resistance | CPT/HCPCS: 86706 ==